=== PATIENT | male | born 1995 | race Caucasian/White ===

== ENCOUNTER 2022-07-29 23:19 | Emergency (ER) | payer MEDICAID ==
[~2022-07-29] VITALS: Ht 182.9 cm; Wt 113.4 kg
[2022-07-29 23:38] VITALS: BP 140/96
--- NOTE | 2022-07-29 23:42 | NUR ---
TO LOBBY A/W BED AMBULATORY
--- NOTE | 2022-07-30 01:46 | NUR ---
Dr. Feliciano examining patient.
[2022-07-30 02:35] LABS: BASOPHILS # (AUTO) 0.1 K/uL (0.00-0.22); BASOPHILS % (AUTO) 0.5 % (0.0-2.0); EOSINOPHILS # (AUTO) 0.2 K/uL (0-0.4); EOSINOPHILS % (AUTO) 1.9 % (0.0-4.0); HEMATOCRIT 48.9 % (36-52); LYMPHOCYTES # (AUTO) 2.6 K/uL (2.0-11.5); LYMPHOCYTES % (AUTO) 27.6 % (20.5-51.1); MEAN CORPUSCULAR HEMOGLOBIN 31 pg (27-31); MEAN CORPUSCULAR HGB CONC 35 g/dL (33-37); MEAN CORPUSCULAR VOLUME 88.7 fL (80-94); MONOCYTES # (AUTO) 0.8 K/uL (0.8-1.0); MONOCYTES % (AUTO) 8.4 % (1.7-9.3); NEUTROPHILS # (AUTO) 5.7 K/uL (1.8-7.7); NEUTROPHILS % (AUTO) 61.6 % (42.2-75.2); PLATELET COUNT (AUTO) 288 K/uL (140-450); RED BLOOD CELL COUNT(AUTO) 5.51 MIL/uL (4.20-6.10); RED CELL DISTRIBUTION WIDTH 12.9 % (11.6-13.7); WHITE BLOOD COUNT (AUTO) 9.3 K/uL (4.8-10.8)
[2022-07-30 02:50] LABS: ALBUMIN 4.7 g/dL (3.4-5.0); ANION GAP 16.7 (8-16); CARBON DIOXIDE 26.1 mmol/L (21-32); CREATININE 0.9 mg/dL (0.6-1.3); POTASSIUM 3.8 mmol/L (3.5-5.1)
[2022-07-30] MEDS ORDERED: LISI-487 PO (04:42)
--- NOTE | 2022-07-30 04:44 | NUR ---
Dr. Feliciano explained results and treatment plans.
[2022-07-30] MEDS ORDERED: lisinopriL 20 MG TAB PO ONE (04:45)
--- NOTE | 2022-07-30 05:20 | NUR ---
Patient discharged with v/s stable. Written and verbal after care instructions given and explained by Dr. Feliciano. Patient alert, oriented and verbalized understanding of instructions. Ambulatory with steady gait. All questions addressed prior to discharge. ID band removed. Patient advised to follow up with PMD. Rx of Lisinopril given. Patient educated on indication of medication including possible reaction and side effects. Opportunity to ask questions provided and answered.
[2022-07-30 05:35] VITALS: BP 132/88
== END 2022-07-30 05:20 | disposition home or self-care (01) ==
LOC: MED 23:19
DX: R07.89 Other chest pain (principal); I10 Essential (primary) hypertension; Z79.899 Other long term (current) drug therapy
CPT/HCPCS: 36415; 71045; 80053; 83880; 84484; 85025; 85379; 93005; 99285